=== PATIENT | female | born 1965 | race African-American/Black ===

== ENCOUNTER 2016-10-01 18:53 | Emergency (ER) | payer SELFPAY ==
[2016-10-01 19:12] VITALS: BP 137/60
[2016-10-01] MEDS ORDERED: FAMOTIDINE 20 MG TABLET PO ONE (21:21)
[2016-10-01] MEDS ORDERED: DIPHENHYDRAMINE HCL 50 MG CAPSULE PO ONE (21:21)
[2016-10-01] MEDS ORDERED: PREDNISONE 20 MG TABLET PO ONE (21:21)
--- NOTE | 2016-10-01 21:29 | ER Document Report ---
ED Skin Rash/Insect Bite/Abscs - General Chief Complaint: Rash Stated Complaint: RASH Time Seen by Provider: 10/01/16 20:46 Mode of Arrival: Ambulatory Information source: Patient TRAVEL OUTSIDE OF THE [place] IN LAST 30 DAYS: No - HPI Patient complains to provider of: Skin rash/lesion Onset: Last week Onset/Duration: Gradual, Persistent Quality of pain: No pain Exacerbated by: Denies Relieved by: Denies Similar symptoms previously: No Recently seen / treated by doctor: No Notes: Patient is a 51-year-old female presenting to the emergency room complaining of diffuse itchy rash that has been present and worsening over the past 10 days, she denies any new foods, medications, lotions, detergents or other skin irritants, no history of similar symptoms previously, no other family members with similar rash, no drainage, no pain, no fevers, she has not taken any medication at home for the rash, has tried home remedies such as vinegar or baking soda with no relief, also applied calamine lotion which reduces the itching but does not alleviate the rash itself - Related Data Allergies/Adverse Reactions: Penicillins Adverse Reaction (Verified 10/01/16 19:10) Urticaria Past Medical History - General Information source: Patient - Social History Smoking Status: Never Smoker Family History: Reviewed & Not Pertinent Patient has suicidal ideation: No Patient has homicidal ideation: No Renal/ Medical History: Denies: Hx Peritoneal Dialysis Musculoskeltal Medical History: Reports Hx Musculoskeletal Trauma Traumatic Medical History: Reports: Hx Fractures Past Surgical History: Reports: Hx Dilation and Curettage - Immunizations Immunizations up to date: Yes Hx Diphtheria, Pertussis, Tetanus Vaccination: Yes Review of Systems - Review of Systems Constitutional: No symptoms reported EENT: No symptoms reported Cardiovascular: No symptoms reported Respiratory: No symptoms reported Gastrointestinal: No symptoms reported Genitourinary: No symptoms reported Female Genitourinary: No symptoms reported Musculoskeletal: No symptoms reported Skin: See HPI, Rash Hematologic/Lymphatic: No symptoms reported Neurological/Psychological: No symptoms reported -: Yes All other systems reviewed and negative Physical Exam - Vital signs Vitals: Temp Pulse BP Pulse Ox 98.4 F 80 137/60 H 99 10/01/16 19:11 10/01/16 19:11 10/01/16 19:11 08/22/17 19:11 - Notes Notes: - General General appearance: Appears well, Alert In distress: None - HEENT Head: Normocephalic, Atraumatic Eyes: Normal Conjunctiva: Normal Extraocular movements intact: Yes Eyelashes: Normal Pupils: PERRL - Respiratory Respiratory status: No respiratory distress - Cardiovascular Rhythm: Regular - Abdominal Inspection: Normal - Back Back: Normal - Extremities General upper extremity: Normal inspection General lower extremity: Normal inspection - Neurological Neuro grossly intact: Yes Orientation: AAOx4 Raudel Coma Scale Eye Opening: Spontaneous [place] Coma Scale Verbal: Oriented [place] Coma Scale Motor: Obeys Commands [place] Coma Scale Total: 15 - Psychological Associated symptoms: Normal affect, Normal mood - Skin Skin Temperature: Warm Skin Moisture: Dry Skin Color: Normal - Skin Location of irregularity: Generalized Character of irregularity: Maculopapular Course - Re-evaluation Re-evalutation: 10/01/16 21:27 Patient with generalized maculopapular rash, no vesicles, no drainage, no erythema, it is scaly in some areas but patient did apply calamine lotion prior to coming to the emergency room, the rash is itchy, nonpainful, no fevers, patient will be treated for atopic dermatitis with appropriate medications and advised to follow-up with her primary care provider and an parts specialist in the next 2-3 days or return if symptoms worsen, patient acknowledges understanding and agreement with this plan - Vital Signs Vital signs: Temp Pulse Resp BP Pulse Ox 98.4 F 80 137/60 H 99 10/01/16 19:11 10/01/16 19:11 10/01/16 19:11 10/01/16 19:11 Discharge - Discharge Clinical Impression: Atopic dermatitis Qualifiers: Atopic dermatitis type: unspecified Qualified Code(s): L20.9 - Atopic dermatitis, unspecified Condition: Stable Disposition: HOME, SELF-CARE Instructions: Contact Dermatitis ([facility]), Atopic Dermatitis (Eczema) ([facility]), Leaf Coverer, Acute Allergic Reaction ([facility]) Additional Instructions: Follow up with your primary care provider in one to 2 days. Return to the emergency room immediately if symptoms worsen or any additional concerns. Prescriptions: Diphenhydramine HCl [Benadryl 25 Mg Capsule] 25 mg PO Q6 #30 capsule Famotidine [Pepcid 20 mg Tablet] 20 mg PO BID #12 tablet Methylprednisolone [Medrol Dosepack (4 mg/Tab) 21 Tab/Dosepak] 4 mg PO ASDIR PRN #21 tab.ds.pk PRN Reason: Referrals: DAYAMI BUENO MD [Primary Care Provider] - Follow up as needed
== END 2016-10-01 21:51 | disposition home or self-care (01) ==
LOC: ER 18:53
DX: L20.9 Atopic dermatitis, unspecified (principal)
CPT/HCPCS: 99282; J7512

== ENCOUNTER 2016-10-19 11:47 | Emergency (ER) | payer SELFPAY ==
[2016-10-19 11:53] VITALS: BP 138/82
--- NOTE | 2016-10-19 12:26 | ER Document Report ---
HPI - HPI Patient complains to provider of: rash Onset: Other - 2 wks Onset/Duration: Worse Quality of pain: No pain Pain Level: 0 Context: Patient complains of pruritic skin rash for the past 2 weeks. Patient states area started to her arms and has spread to trunk and lower extremities as well. Patient denies any fever or recent illness. Patient denies any recent dedication use except for recent steroids. Patient states she was here recently treated with steroids and the rash improved minimally and then got much worse. Associated Symptoms: Other - skin rash. denies: Fever Exacerbated by: Denies Relieved by: Denies Similar symptoms previously: No Recently seen / treated by doctor: Yes - ROS ROS below otherwise negative: Yes Systems Reviewed and Negative: Yes All other systems reviewed and negative - CONSTITUTIONAL Constitutional: DENIES: Fever, Chills - NEURO Neurology: DENIES: Headache - CARDIOVASCULAR Cardiovascular: DENIES: Chest pain - RESPIRATORY Respiratory: DENIES: Trouble Breathing - GASTROINTESTINAL Gastrointestinal: DENIES: Nausea, Patient vomiting - REPRODUCTIVE Reproductive: DENIES: : - DERM Skin Color: Normal Skin Problems: Rash Past Medical History - General Information source: Patient - Social History Smoking Status: Never Smoker Chew tobacco use (# tins/day): No Frequency of alcohol use: None Drug Abuse: None Occupation: cleaning Family History: Reviewed & Not Pertinent Renal/ Medical History: Denies: Hx Peritoneal Dialysis Musculoskeltal Medical History: Reports Hx Musculoskeletal Trauma Traumatic Medical History: Reports: Hx Fractures Past Surgical History: Reports: Hx Dilation and Curettage - Immunizations Immunizations up to date: Yes Hx Diphtheria, Pertussis, Tetanus Vaccination: Yes Vertical Provider Document - CONSTITUTIONAL Agree With Documented VS: Yes Exam Limitations: No Limitations General Appearance: WD/WN, No Apparent Distress - INFECTION CONTROL TRAVEL OUTSIDE OF THE [place] IN LAST 30 DAYS: No - HEENT HEENT: Atraumatic, Normal ENT Exam, Normocephalic - NECK Neck: Normal Inspection, Supple. negative: Lymphadenopathy-Left, Lymphadenopathy-Right - RESPIRATORY Respiratory: Breath Sounds Normal, No Respiratory Distress, Chest Non-Tender O2 Sat by Pulse Oximetry: 99 - CARDIOVASCULAR Cardiovascular: Regular Rate, Regular Rhythm, No Murmur - BACK Back: Normal Inspection - MUSCULOSKELETAL/EXTREMETIES Musculoskeletal/Extremeties: JOSÉ KAUFMAN - NEURO Level of Consciousness: Awake, Alert, Appropriate Motor/Sensory: No Motor Deficit - DERM Integumentary: Warm, Dry, Rash - Patient with diffuse scaling plaque type rash distributed to trunk and extremities Course - Re-evaluation Re-evalutation: 10/19/16 12:24 Suspect that patient has a case of pityriasis rosea, will treat symptomatically and draw labs to evaluate for possible syphilis. - Vital Signs Vital signs: Temp Pulse Resp BP Pulse Ox 98.0 F 82 20 138/82 H 99 10/19/16 11:52 10/19/16 11:52 10/19/16 11:52 10/19/16 11:52 10/19/16 11:52 Discharge - Discharge Clinical Impression: Pityriasis rosea Condition: Stable Disposition: HOME, SELF-CARE Instructions: Pityriasis Rosea ([facility]), Topical Steroid Cream or Ointment ([facility]) Additional Instructions: Return immediately for any new or worsening symptoms Followup with your primary care provider, call tomorrow to make a followup appointment Follow-up with elder assistant for further evaluation Prescriptions: Hydroxyzine HCl [Atarax 25 mg Tablet] 1 - 2 tab PO QID #25 tablet Triamcinolone Acetonide [Aristocort 0.1% Cream] 1 applic TP TID #60 gm Forms: Return to Work Referrals: PATRICIA CHAVARRIA DO [ACTIVE STAFF] - 10/21/16
== END 2016-10-19 12:38 | disposition home or self-care (01) ==
LOC: ER 11:47
DX: L42 Pityriasis rosea (principal)
CPT/HCPCS: 36415; 86592; 99283

== ENCOUNTER 2017-06-24 21:58 | Emergency (ER) | payer SELFPAY ==
--- NOTE | 2017-06-25 01:48 | ER Document Report ---
ED General - General Mode of Arrival: Ambulatory Information source: Patient TRAVEL OUTSIDE OF THE [place] IN LAST 30 DAYS: No <JENNIFER MCKNIGHT - Last Filed: 06/25/17 02:20> <EDUARDO BERNAL - Last Filed: 06/25/17 03:01> - General Chief Complaint: Chest Pain Stated Complaint: CHEST PAIN Time Seen by Provider: 06/25/17 01:25 Notes: Patient is a 51 year old female presenting to the emergency department complaining of left sided chest pain with associated symptoms of left shoulder pain, left sided neck pain, weakness and a headache. Patient states her chest pain began originally at 1600 and described it as sharp that eventually went away. She states around 20 prior to arrival to ER the chest pain came back, which she describes as sharp, intermittent and "shooting". She states the chest pain radiated into her left neck and shoulder. She describes her headache as sharp located on the temporal region bilaterally. Patent states that she has had similar symptoms like this approximately 2 years ago. (JENNIFER MCKNIGHT) - Related Data Allergies/Adverse Reactions: Penicillins Adverse Reaction (Verified 10/19/16 11:52) Urticaria Past Medical History - General Information source: Patient - Social History Smoking Status: Never Smoker Cigarette use (# per day): No Chew tobacco use (# tins/day): No Frequency of alcohol use: None Family History: CAD, Hypertension Patient has suicidal ideation: No Patient has homicidal ideation: No Musculoskeltal Medical History: Reports Hx Musculoskeletal Trauma Traumatic Medical History: Reports: Hx Fractures Past Surgical History: Reports: Hx Dilation and Curettage - Immunizations Immunizations up to date: Yes Hx Diphtheria, Pertussis, Tetanus Vaccination: Yes <JENNIFER MCKNIGHT - Last Filed: 06/25/17 02:20> Review of Systems - Review of Systems Constitutional: See HPI, Weakness EENT: No symptoms reported Cardiovascular: See HPI, Chest pain Respiratory: No symptoms reported Gastrointestinal: No symptoms reported Genitourinary: No symptoms reported Female Genitourinary: No symptoms reported Musculoskeletal: See HPI, Neck pain Skin: No symptoms reported Hematologic/Lymphatic: No symptoms reported Neurological/Psychological: See HPI, Headaches -: Yes All other systems reviewed and negative <JENNIFER MCKNIGHT - Last Filed: 06/25/17 02:20> Physical Exam - General General appearance: Appears well, Alert, Other In distress: None - HEENT Head: Normocephalic, Atraumatic, Other - Parietal scalp tender to palpation Eyes: Normal Conjunctiva: Normal Extraocular movements intact: Yes Pupils: PERRL Neck: Normal, Posterior cervical chain - tender to palpation - Respiratory Respiratory status: No respiratory distress Chest status: Tender - Left anterior chest wall tender to palpation Breath sounds: Normal Chest palpation: Normal - Cardiovascular Rhythm: Regular Heart sounds: Normal auscultation Murmur: No Friction rub: No Gallop: None auscultated - Abdominal Inspection: Morbidly Obese - Back Back: Normal - Extremities General upper extremity: Normal ROM General lower extremity: Normal ROM Shoulder: Tender - right shoulder tender to palpation - Neurological Neuro grossly intact: Yes Cognition: Normal Orientation: AAOx4 [place] Coma Scale Eye Opening: Spontaneous [place]audel Coma Scale Verbal: Oriented [place] Coma Scale Motor: Obeys Commands [place] Coma Scale Total: 15 Speech: Normal - Psychological Associated symptoms: Normal affect, Normal mood - Skin Skin Temperature: Warm Skin Moisture: Dry <JENNIFER MCKNIGHT - Last Filed: 06/25/17 02:20> - Vital signs Vitals: Temp Pulse Resp BP Pulse Ox 98.5 F 73 18 156/102 H 98 06/24/17 22:18 06/24/17 22:18 06/24/17 22:18 06/24/17 22:18 06/24/17 22:18 Course - Laboratory Result Diagrams: 06/25/17 00:57 06/25/17 00:57 <JENNIFER MCKNIGHT - Last Filed: 06/25/17 02:20> - Laboratory Result Diagrams: 06/25/17 00:57 06/25/17 00:57 <EDUARDO BERNAL - Last Filed: 06/25/17 03:01> - Re-evaluation Re-evalutation: 06/25/17 02:55 Review of prior visits over the last few years shows the patient's blood pressure has been as high or higher than it is today as far back as 2010. It would frequently go down during her visits suggesting this may be white coat hypertension. The patient's CK is 512, this may be related to the chest wall muscle tenderness and shoulder muscle tenderness. (EDUARDO BERNAL) - Vital Signs Vital signs: Temp Pulse Resp BP Pulse Ox 97.6 F 73 15 151/87 H 98 06/25/17 00:13 06/24/17 22:18 06/25/17 01:01 06/25/17 01:01 06/25/17 01:01 - Laboratory Laboratory results interpreted by me: 06/25/17 00:57 Est GFR (Non-Af Amer) 59 L AST 57 H Creatine Kinase 512 H Discharge <JENNIFER MCKNIGHT - Last Filed: 06/25/17 02:20> <EDUARDO BERNAL - Last Filed: 06/25/17 03:01> - Discharge Clinical Impression: Chest wall pain, Elevated blood pressure reading, Muscle tension headache, Elevated creatine kinase Condition: Stable Disposition: HOME, SELF-CARE Additional Instructions: Chest Wall Pain: Your chest pain has been diagnosed as coming from the chest wall. This is often caused by straining the muscles or joints in the chest during physical activity, direct trauma, coughing, or vigorous vomiting. Persons with arthritis are especially prone to this type of pain, due to inflammation of the cartilage joints near the breast bone. Occasionally, no cause can be found. Rest from strenuous physical activity. This kind of chest pain is usually made worse by movement of the chest. Depending on the symptoms, we may prescribe medicine for pain, muscle relaxation, and antiinflammatory effects. If the pain is new, and seems to be due to muscle strain, cold packs can help. Otherwise, apply gentle warmth to the painful area for 15 minutes every hour or two. You should contact the doctor immediately if things change. Further evaluation is needed if you develop a fever or cough, if the nature of the pain changes, or if you become short of breath. Elevated Creatinine Kinase enzyme: This muscle enzyme was elevated. This frequently occurs during injury to the muscle. This may be related to the tenderness you have in your chest wall muscles. For now the only important thing to do is drink lots of fluids to help flush the muscle enzymes out of your bloodstream. High Blood Pressure: When your blood pressure was taken today it was elevated. Pre-hypertension/Hypertension: The patient has been informed that they may have pre-hypertension or Hypertension based on a blood pressure reading in the emergency department. I recommend that the patient call the primary care provider listed on their discharge instructions or a physician of their choice this wee to arrange follow up for further evaluation of possible pre- hypertension or Hypertension. Sometimes, stress or illness causes a temporary elevation of your blood pressure. We suggest that you get your blood pressure measured three more times during the next few days to see if this is more than a temporary abnormality. If your blood pressure is greater than 150/90 on each occasion, you must have treatment. Some simple things you can do to help are: If you have blood pressure medicine but aren't using it regularly, start taking it again. Get some aerobic exercise for at least 20 minutes on a daily basis. (See your doctor before beginning a new exercise program.) Eat a low-fat diet. Lose excess weight. Avoid salty foods and avoid adding salt to any of the foods you eat. Avoid diet pills, decongestants, "energizing" herbs, and other medicines that elevate blood pressure. If left untreated, hypertension greatly enhances your risk for developing heart disease and strokes. Please don't ignore this problem. Take Tylenol and ibuprofen for your chest wall pain and muscle tension headache. Drink lots of fluids for the next few days to help wash out the elevated muscle enzymes noted in your bloodstream today. Get plenty of rest. Check your blood pressure every day for the next week and if it remains elevated then you should see a local medical doctor to treat your blood pressure. Follow-up with a local medical doctor in 1 week to recheck your creatinine kinase muscle enzyme level.. RETURN TO THE EMERGENCY ROOM IF ANY NEW OR WORSENING SYMPTOMS. Scribe Documentation - Scribe Written by Teresa:: Teresa Obregon, 06/25/2017 01:57 acting as scribe for :: Sy <JENNIFER MCKNIGHT - Last Filed: 06/25/17 02:20>
[2017-06-25 02:02] LABS: ABSOLUTE EOSINOPHILS # (AUTO) 0.1 10^3/uL (0.0-0.6); ABSOLUTE LYMPHOCYTES (AUTO) 2.7 10^3/uL (0.5-4.7); ABSOLUTE MONOCYTES (AUTO) 0.6 10^3/uL (0.1-1.4); ABSOLUTE NEUT (AUTO) 2.6 10^3/uL (1.7-8.2); BASOPHILS % (AUTO) 0.5 % (0-2); EOSINOPHILS % (AUTO) 1.9 % (0-6); HEMATOCRIT 45.2 % (36.0-47.0); HEMOGLOBIN 14.9 g/dL (12.0-15.5); LYMPHOCYTES % (AUTO) 44.8 % (13-45); MEAN CORPUSCULAR HEMOGLOBIN 29.9 pg (27.0-33.4); MEAN CORPUSCULAR HGB CONC 32.9 g/dL (32.0-36.0); MEAN CORPUSCULAR VOLUME 91 fl (80-97); MONOCYTES % (AUTO) 9.6 % (3-13); PLATELET COUNT 233 10^3/uL (150-450); RED BLOOD COUNT 4.97 10^6/uL (3.72-5.28); RED CELL DISTRIBUTION WIDTH 13.5 % (11.5-14.0); SEGMENTED NEUTROPHILS % (AUTO) 43.2 % (42-78); TOTAL CELLS COUNTED % (AUTO) 100 %
[2017-06-25] MEDS ORDERED: KETOROLAC TROMETHAMINE INJ/PF 30 MG/1 ML SDV IV ONE (02:05)
[2017-06-25 02:09] LABS: ALANINE AMINOTRANSFERASE 32 U/L (9-52); ALKALINE PHOSPHATASE 103 U/L (38-126); ANION GAP 12 (5-19); ASPARTATE AMINO TRANSFERASE 57 U/L (14-36); BILIRUBIN,DIRECT 0.4 mg/dL (0.0-0.4); BILIRUBIN,TOTAL 0.5 mg/dL (0.2-1.3); BLOOD UREA NITROGEN 13 mg/dL (7-20); CALCIUM 9.9 mg/dL (8.4-10.2); CARBON DIOXIDE 29 mmol/L (22-30); CHLORIDE 103 mmol/L (98-107); CREATINE KINASE 512 U/L (30-135); GLUCOSE 107 mg/dL (75-110); POTASSIUM 4.7 mmol/L (3.6-5.0); SODIUM 144.4 mmol/L (137-145); TOTAL PROTEIN 7.1 g/dL (6.3-8.2)
[2017-06-25 03:06] VITALS: BP 123/88
--- NOTE | 2017-06-25 08:47 | EKG REPORT ---
SEVERITY:- ABNORMAL ECG - SINUS RHYTHM FIRST DEGREE AV BLOCK CONSIDER LEFT VENTRICULAR HYPERTROPHY PROBABLE INFERIOR INFARCT, OLD : Confirmed by: Tiago Huang 25-Jun-2017 08:46:26
== END 2017-06-25 03:16 | disposition home or self-care (01) ==
LOC: ER 21:58
DX: R07.9 Chest pain, unspecified (principal); M25.512 Pain in left shoulder; M54.2 Cervicalgia; R94.4 Abnormal results of kidney function studies; R53.1 Weakness; Z88.0 Allergy status to penicillin; G44.209 Tension-type headache, unspecified, not intractable; R03.0 Elevated blood-pressure reading, without diagnosis of hypertension
CPT/HCPCS: 93005; 99285; 96374; 36415; 82550; 85025; 80053; 84484; 93010; J1885

== ENCOUNTER 2017-10-09 14:01 | Emergency (ER) | payer SELFPAY ==
[2017-10-09] MEDS ORDERED: ACETAMINOPHEN 325 MG TABLET PO ONE (14:26)
[2017-10-09] MEDS ORDERED: IBUPROFEN 600 MG TABLET PO ONE (14:26)
--- NOTE | 2017-10-09 14:39 | ER Document Report ---
HPI - HPI Patient complains to provider of: Neck and lower back pain Onset: Other - Chronic but worse since yesterday Onset/Duration: Gradual, Persistent Pain Level: 4 Context: 52-year-old nondiabetic [employer] patient of [facility] is complaining of crunching and catching sensation when she turns her neck side to side and moves her lower back. She is worried that she has arthritis. There is no recent injury at work. She did get a new mattress on Friday. No fever or chills. No radiculopathy. No saddle anesthesia. No IV drug use. No history of cancer. Associated Symptoms: None Exacerbated by: Movement Relieved by: Denies Similar symptoms previously: Yes Recently seen / treated by doctor: Yes - ROS ROS below otherwise negative: Yes Systems Reviewed and Negative: Yes All other systems reviewed and negative - REPRODUCTIVE Reproductive: DENIES: : Past Medical History - General Information source: Patient - Social History Smoking Status: Never Smoker Occupation: [employer] off today Lives with: Family Family History: CAD, Hypertension Patient has suicidal ideation: No Patient has homicidal ideation: No Renal/ Medical History: Denies: Hx Peritoneal Dialysis Musculoskeletal Medical History: Reports Hx Musculoskeletal Trauma Traumatic Medical History: Reports: Hx Fractures Past Surgical History: Reports: Hx Dilation and Curettage - Immunizations Immunizations up to date: Yes Hx Diphtheria, Pertussis, Tetanus Vaccination: Yes Vertical Provider Document - CONSTITUTIONAL Agree With Documented VS: Yes Exam Limitations: No Limitations - INFECTION CONTROL TRAVEL OUTSIDE OF THE [place] IN LAST 30 DAYS: No - HEENT HEENT: Normocephalic - NECK Neck: Supple - non tender c spine, no deformity, erythema or rash - MUSCULOSKELETAL/EXTREMETIES Musculoskeletal/Extremeties: MAEW, FROM. negative: Tender - no renetta l spine tenderness Notes: 5+ arm strength - NEURO Level of Consciousness: Awake Motor/Sensory: No Motor Deficit, No Sensory Deficit Deep Tendon Reflexes: 2+ - DERM Integumentary: No Rash Course - Re-evaluation Re-evalutation: 10/09/17 15:28 Radiology report shows lower lumbar facet arthropathy similar compared to previous exam, diffuse degenerative disc changes with disc space loss and anterior osteophyte C2-3 through C6-7, there is some foraminal narrowing C3 through 5 and high-grade right C5-6 foraminal narrowing, left side there is high -grade C3 through 6 foraminal narrowing. I explained this to the patient and she can follow-up with [facility] for possible referral to neurosurgery for evaluation. - Vital Signs Vital signs: Temp Pulse Resp BP Pulse Ox 98.4 F 87 16 143/85 H 97 10/09/17 14:06 10/09/17 14:06 10/09/17 14:06 10/09/17 14:06 10/09/17 14:06 Discharge - Discharge Clinical Impression: degenerative disc disease neck, arthritis lumbar spine Condition: Good Disposition: HOME, SELF-CARE Instructions: Ibuprofen (General) ([facility]), Arthritis ([facility]) Additional Instructions: See your doctor for follow-up Copy of imaging reports given to you Motrin for inflammation and discomfort Prescriptions: Ibuprofen [Motrin 600 mg Tablet] 600 mg PO Q8HP PRN #30 tablet PRN Reason: Forms: Return to Work Referrals: DAYAMI HUSTON MD [ACTIVE STAFF] - Follow up in 1 week
--- NOTE | 2017-10-09 15:22 | RADIOLOGY REPORT (SQ) ---
EXAM DESCRIPTION: CERV SP 4 OR 5 VIEWS COMPLETED DATE/TIME: 10/09/2017 2:55 pm REASON FOR STUDY: pain with movement, crunching sound, no injury COMPARISON: Cervical spine films 10/23/2011 NUMBER OF VIEWS: Five views. TECHNIQUE: AP, lateral, obliques and odontoid radiographic images acquired of the cervical spine. LIMITATIONS: None. FINDINGS: MINERALIZATION: Normal. ALIGNMENT: Anatomic. VERTEBRAE: Vertebral bodies of normal height. DISCS: Disc space narrowing with anterior osteophyte formation from C2-3 through C6-7. FORAMINA: On the right side, moderate C3-4 and C4-5 foraminal narrowing and high-grade right C5-6 for aminal narrowing is present. On the left side, high-grade C3-4, C4-5, and C5-6 foraminal narrowing is present. LATERAL AND POSTERIOR ELEMENTS: Facets, lateral masses and spinous processes without significant find ings. HARDWARE: None in the spine. SOFT TISSUES: No masses or calcifications. Lung apices clear. OTHER: No other significant finding. IMPRESSION: Diffuse degenerative disc changes with disc space loss of height and anterior osteophyte formation. Multilevel foraminal narrowing from facet and uncovertebral hypertrophy TECHNICAL DOCUMENTATION: JOB ID: [id number] [employer]- All Rights Reserved Reading location - IP/workstation name: [email or web address]
--- NOTE | 2017-10-09 15:24 | RADIOLOGY REPORT (SQ) ---
EXAM DESCRIPTION: L SPINE WHOLE COMPLETED DATE/TIME: 10/09/2017 2:55 pm REASON FOR STUDY: pain with movement, crunching sound, no injury COMPARISON: Lumbar spine five views 10/23/2011 NUMBER OF VIEWS: Five views including obliques. TECHNIQUE: AP, lateral, oblique, and sacral radiographic images acquired of the lumbar spine. LIMITATIONS: None. FINDINGS: MINERALIZATION: Normal. SEGMENTATION: Normal. No transitional anatomy. ALIGNMENT: Normal. VERTEBRAE: Maintained height. No fracture or worrisome bone lesion. DISCS: Disc space loss of height at L5-S1 POSTERIOR ELEMENTS: Bilateral facet arthropathy at L3-4, L4-5, L5-S1. No spondylolysis HARDWARE: None in the spine. PARASPINAL SOFT TISSUES: Normal. PELVIS: Bilateral SI joint sclerosis OTHER: No other significant finding. IMPRESSION: Lower lumbar facet arthropathy similar compared to previous exam TECHNICAL DOCUMENTATION: JOB ID: [id number] [employer]- All Rights Reserved Reading location - IP/workstation name: [email or web address]
[2017-10-09 15:47] VITALS: BP 140/81
== END 2017-10-09 15:46 | disposition home or self-care (01) ==
LOC: ER 14:01
DX: M50.30 Other cervical disc degeneration, unspecified cervical region (principal); M47.9 Spondylosis, unspecified
CPT/HCPCS: 72050; 72110; 99283

== ENCOUNTER 2019-08-17 21:44 | Emergency (ER) | payer SELFPAY ==
[2019-08-17 23:17] LABS: APPEARANCE,URINE CLOUDY; BILIRUBIN,URINE NEGATIVE (NEGATIVE); COLOR,URINE YELLOW; GLUCOSE, URINE >=500 mg/dL (NEGATIVE); KETONES,URINE NEGATIVE (NEGATIVE); LEUKOCYTE ESTERASE,URINE LARGE (NEGATIVE); NITRITE,URINE NEGATIVE (NEGATIVE); PROTEIN,URINE 30 mg/dL (NEGATIVE); URINE SPECIFIC GRAVITY 1.027
--- NOTE | 2019-08-18 00:02 | ER Document Report ---
ED Medical Screen (RME) - General Stated Complaint: SORE THROAT Time Seen by Provider: 08/17/19 23:54 Primary Care Provider: DAYAMI BUENO MD [Primary Care Provider] - Follow up as needed Mode of Arrival: Ambulatory Information source: Patient Notes: HPI; 53-year-old female presents emergency room complaining of a sore throat for the past 2 days. Denies any fevers. States is able to drink but is painful. Patient states she had exposure to a positive family member who tested positive on Friday for COVID her last exposure to the patient was Friday night denies any nausea, vomiting, no diarrhea's, no fever, no recent travel. PE: Alert and oriented x3. Mild distress noted. Unable to do full assessment in the waiting area. I have greeted and performed a rapid initial assessment of this patient. A comprehensive ED assessment and evaluation of the patient, analysis of test results and completion of the medical decision making process will be conducted by additional ED providers. I have specifically instructed the patient or family members with the patient to immediately return to any nursing staff should anything change in the patient's condition or with their chief complaint. TRAVEL OUTSIDE OF THE [place] IN LAST 30 DAYS: No - Related Data Allergies/Adverse Reactions: Penicillins Adverse Reaction (Verified 10/09/17 14:04) Urticaria Past Medical History - Social History Family history: CAD, CVA, Hyperlipidemia, Hypertension Renal/ Medical History: Denies: Hx Peritoneal Dialysis Musculoskeltal Medical History: Reports Hx Musculoskeletal Trauma Traumatic Medical History: Reports: Hx Fractures Past Surgical History: Reports: Hx Dilation and Curettage - Immunizations Immunizations up to date: Yes Hx Diphtheria, Pertussis, Tetanus Vaccination: Yes Physical Exam - Vital signs Vitals: Temp Pulse Resp BP Pulse Ox 98.3 F 82 18 149/80 H 96 08/17/19 22:02 08/17/19 22:02 08/17/19 22:02 08/17/19 22:02 08/17/19 22:02 Course - Vital Signs Vital signs: Temp Pulse Resp BP Pulse Ox 98.3 F 82 18 149/80 H 96 08/17/19 22:02 08/17/19 22:02 08/17/19 22:02 08/17/19 22:02 08/17/19 22:02 - Laboratory Laboratory results interpreted by me: 08/17/19 22:54 Urine Protein 30 H Urine Glucose (UA) >=500 H Urine Urobilinogen 4.0 H Ur Leukocyte Esterase LARGE H Urine Ascorbic Acid 20 H Doctor's Discharge - Discharge Referrals: DAYAMI BUENO MD [Primary Care Provider] - Follow up as needed
[2019-08-18] MEDS ORDERED: CEPHALEXIN 500 MG CAPSULE PO ONE (01:35)
[2019-08-18] MEDS ORDERED: FLUCONAZOLE 100 MG TABLET PO ONE (01:35)
--- NOTE | 2019-08-18 01:39 | ER Document Report ---
ED General - General Chief Complaint: Sore Throat Stated Complaint: SORE THROAT Time Seen by Provider: 08/17/19 23:54 Primary Care Provider: DAYAMI BUENO MD [ACTIVE STAFF] - Follow up as needed Mode of Arrival: Ambulatory Notes: Patient is a 53-year-old female that comes to the emergency department for chief complaint of exposure to a family member who has now tested positive for COVID- 19. Patient states yesterday she also developed a sore throat. Patient also states that she currently has a yeast infection (vaginally) and she also has dysuria. She denies abdominal pain, flank pain, vomiting, cough, shortness of breath, difficulty swallowing or breathing, chest pain, headache, neck stiffness. Past medical history of hypertension, hyperlipidemia, type 2 diabetes. She is taking her medications. She denies smoking, asthma, COPD, or any immunosuppression. TRAVEL OUTSIDE OF THE [place] IN LAST 30 DAYS: No - Related Data Allergies/Adverse Reactions: Penicillins Adverse Reaction (Verified 10/09/17 14:04) Urticaria Past Medical History - General Information source: Patient - Social History Smoking Status: Former Smoker Chew tobacco use (# tins/day): No Frequency of alcohol use: Rare Drug Abuse: None Lives with: Family Family History: CAD, Hypertension Renal/ Medical History: Denies: Hx Peritoneal Dialysis Musculoskeletal Medical History: Reports Hx Musculoskeletal Trauma Traumatic Medical History: Reports: Hx Fractures Past Surgical History: Reports: Hx Dilation and Curettage - Immunizations Immunizations up to date: Yes Hx Diphtheria, Pertussis, Tetanus Vaccination: Yes Review of Systems - Review of Systems Constitutional: No symptoms reported EENT: See HPI Cardiovascular: No symptoms reported Respiratory: No symptoms reported Gastrointestinal: No symptoms reported Genitourinary: See HPI Female Genitourinary: No symptoms reported Musculoskeletal: No symptoms reported Skin: No symptoms reported Hematologic/Lymphatic: No symptoms reported Neurological/Psychological: No symptoms reported Physical Exam - Vital signs Vitals: Temp Pulse Resp BP Pulse Ox 98.3 F 82 18 149/80 H 96 08/17/19 22:02 08/17/19 22:02 08/17/19 22:02 08/17/19 22:02 08/17/19 22:02 - Notes Notes: GENERAL: Alert, interacts well. No acute distress. HEAD: Normocephalic, atraumatic. EYES: Pupils equal, round, and reactive to light. Extraocular movements intact. ENT: Oral mucosa moist, tongue midline. Oropharynx unremarkable. Airway patent. Nares patent, sinuses non-tender, ear canals unremarkable, TM's intact. NECK: Full range of motion. Supple. Trachea midline. No lymphadenopathy. LUNGS: Clear to auscultation bilaterally, no wheezes, rales, or rhonchi. No respiratory distress. Non-tender chest wall. HEART: Regular rate and rhythm. No murmur ABDOMEN: Soft, non-tender. Non-distended. EXTREMITIES: Moves all 4 extremities spontaneously. No edema, normal radial and dorsalis pedis pulses bilaterally. No cyanosis. BACK: no cervical, thoracic, lumbar midline tenderness. No saddle anesthesia, normal distal neurovascular exam. Moves all extremities in full range of motion. NEUROLOGICAL: Alert and oriented x3. Normal speech. Cranial nerves II through XII grossly intact. Strength 5/5 in all extremities. PSYCH: Normal affect, normal mood. SKIN: Warm, dry, normal turgor. No rashes or lesions noted. Course - Re-evaluation Re-evalutation: Patient has unremarkable oral pharyngeal exam, no lymphadenopathy, clear lungs, unremarkable ENT exam, unremarkable abdomen exam. She does have dysuria, urine does show urinary tract infection. No fever or vomiting. Culture placed, placed on antibiotics, also placed on Diflucan after discussion because of patient's reported yeast infection. I do not feel a chest x-ray is indicated because patient has no respiratory symptoms, hypoxia, or even fever. However because patient has been exposed to the coronavirus patient will be tested for COVID-19, she was given quarantine instructions, she was given return precautions which were discussed in detail. Patient states understanding and agreement with plan. Stable and well-appearing at time of discharge. - Vital Signs Vital signs: Temp Pulse Resp BP Pulse Ox 97.6 F 74 16 146/89 H 96 08/18/19 02:52 08/18/19 02:52 08/18/19 02:52 08/18/19 02:52 08/18/19 02:52 - Laboratory Laboratory results interpreted by me: 08/17/19 22:54 Urine Protein 30 H Urine Glucose (UA) >=500 H Urine Urobilinogen 4.0 H Ur Leukocyte Esterase LARGE H Urine Ascorbic Acid 20 H Discharge - Discharge Clinical Impression: Exposure to COVID-19 virus, Dysuria Pharyngitis Qualifiers: Pharyngitis/tonsillitis etiology: unspecified etiology Qualified Code(s): J02.9 - Acute pharyngitis, unspecified Condition: Stable Disposition: HOME, SELF-CARE Additional Instructions: Your strep test is negative. You have been tested for the virus COVID-19. You will be contacted with results, see additional instructions for this below. You do have a urinary tract infection, take the Keflex as prescribed to completion, after completion take the Diflucan medication again for the yeast infection. Return if you worsen including vomiting, developing abdominal or flank pain, spiking fevers, difficulty breathing, or any other concerning symptoms. As a person under investigation for COVID-19, the [place] Department of Health and Human Services (division on public health) advises you to adhere to the following guidance until your test results are reported to you. If your test result is positive, you will receive additional information from your provider and your local health department at that time. Remain at home until you are cleared by the health provider or public health authorities. Keep a log of visitors to your home, notify any visitors to your home of your isolation status. If you plan to move to a new address or leave the [facility], notify the local health department in your County. Call your Doctor or seek care if you have an urgent medical need. Before seeking medical care, call him to get instructions from the provider before arriving at the medical office, clinic, or hospital. Notify them that you are being tested for the virus (COVID-19) so that arrangements can be made, as necessary, to prevent transmission to others in the healthcare setting. Next, notify the local health department in your county. If a medical emergency arises and you need to call 911, inform the first responders that you are being tested for the virus that causes COVID-19. Next, notify the local health department in your county. Prescriptions: Fluconazole [Diflucan] 150 mg PO ONCE PRN #3 tablet PRN Reason: Cephalexin Monohydrate [Keflex 500 mg Capsule] 500 mg PO BID 10 Days #20 capsule Forms: Return to Work Referrals: DAYAMI BUENO MD [ACTIVE STAFF] - Follow up as needed
[2019-08-18 03:04] VITALS: BP 146/89
== END 2019-08-18 03:10 | disposition home or self-care (01) ==
LOC: ER 21:44
DX: Z20.828 Contact with and (suspected) exposure to other viral communicable diseases (principal); J02.9 Acute pharyngitis, unspecified; R30.0 Dysuria; I10 Essential (primary) hypertension; E78.5 Hyperlipidemia, unspecified; E11.9 Type 2 diabetes mellitus without complications; Z79.899 Other long term (current) drug therapy; Z87.891 Personal history of nicotine dependence; Z88.0 Allergy status to penicillin
CPT/HCPCS: 99283; 87070; 87880; 87635; 81001; C9803; 87086

== ENCOUNTER 2019-09-26 20:09 | Emergency (ER) | payer SELFPAY ==
[2019-09-26] MEDS ORDERED: NORMAL SALINE 1000 ML 1,000 ML IV ONE (20:48)
--- NOTE | 2019-09-26 20:51 | ER Document Report ---
ED Medical Screen (RME) - General Chief Complaint: High Blood Sugar Stated Complaint: BLOOD SUGAR ISSUES Time Seen by Provider: 09/26/19 20:47 Primary Care Provider: DEJAN ALFONSO DO [Primary Care Provider] - Follow up as needed Mode of Arrival: Ambulatory Information source: Patient Notes: 54-year-old female presented to ED for complaint of nausea vomiting elevated blood sugar frequent thirst and frequent urination. She states she was diagnosed with diabetes type 2 earlier this year. She states she also has a history of high blood pressure and is out of her metformin and her blood pressure medication. She states she is not taking either and a couple days. Does have a blood sugar of 582 at this time. We will will get blood urine EKG and start IV fluids in the triage area and we will get her to a room. I have asked the triage nurse to place informed the charge nurse we needed a room as soon as possible. I have greeted and performed a rapid initial assessment of this patient. A comprehensive ED assessment and evaluation of the patient, analysis of test results and completion of medical decision making process will be conducted by an additional ED providers. TRAVEL OUTSIDE OF THE [place] IN LAST 30 DAYS: No - Related Data Allergies/Adverse Reactions: Penicillins Adverse Reaction (Verified 10/09/17 14:04) Urticaria Past Medical History - Social History Family history: CAD, CVA, Hyperlipidemia, Hypertension Renal/ Medical History: Denies: Hx Peritoneal Dialysis Musculoskeltal Medical History: Reports Hx Musculoskeletal Trauma Traumatic Medical History: Reports: Hx Fractures Past Surgical History: Reports: Hx Dilation and Curettage - Immunizations Immunizations up to date: Yes Hx Diphtheria, Pertussis, Tetanus Vaccination: Yes Doctor's Discharge - Discharge Referrals: DEJAN ALFONSO DO [Primary Care Provider] - Follow up as needed
[2019-09-26 21:30] LABS: VENOUS BLOOD BASE EXCESS 2.6 mmol/L; VENOUS BLOOD HCO3 29.3 mmol/L (20-32); VENOUS BLOOD PCO2 53.1 mmHg (35-63); VENOUS BLOOD PH 7.36 (7.30-7.42)
[2019-09-26 21:31] LABS: ABSOLUTE EOSINOPHILS # (AUTO) 0.1 10^3/uL (0.0-0.6); ABSOLUTE LYMPHOCYTES (AUTO) 2.6 10^3/uL (0.5-4.7); ABSOLUTE MONOCYTES (AUTO) 0.5 10^3/uL (0.1-1.4); ABSOLUTE NEUT (AUTO) 2.6 10^3/uL (1.7-8.2); BASOPHILS % (AUTO) 0.5 % (0-2); EOSINOPHILS % (AUTO) 1.2 % (0-6); HEMATOCRIT 46.8 % (36.0-47.0); LYMPHOCYTES % (AUTO) 44.6 % (13-45); MEAN CORPUSCULAR HEMOGLOBIN 30.9 pg (27.0-33.4); MEAN CORPUSCULAR HGB CONC 34.3 g/dL (32.0-36.0); MEAN CORPUSCULAR VOLUME 90 fl (80-97); MONOCYTES % (AUTO) 9.3 % (3-13); PLATELET COUNT 213 10^3/uL (150-450); RED CELL DISTRIBUTION WIDTH 12.5 % (11.5-14.0); SEGMENTED NEUTROPHILS % (AUTO) 44.4 % (42-78); TOTAL CELLS COUNTED % (AUTO) 100 %; WHITE BLOOD COUNT 5.9 10^3/uL (4.0-10.5)
[2019-09-26 21:49] LABS: ALBUMIN 4.7 g/dL (3.5-5.0); ALKALINE PHOSPHATASE 199 U/L (38-126); ANION GAP 11 (5-19); ASPARTATE AMINO TRANSFERASE 46 U/L (14-36); BILIRUBIN,DIRECT 0.1 mg/dL (0.0-0.4); BILIRUBIN,TOTAL 0.6 mg/dL (0.2-1.3); BLOOD UREA NITROGEN 12 mg/dL (7-20); CALCIUM 9.8 mg/dL (8.4-10.2); CARBON DIOXIDE 30 mmol/L (22-30); CHLORIDE 94 mmol/L (98-107); POTASSIUM 4.3 mmol/L (3.6-5.0); TOTAL PROTEIN 8.3 g/dL (6.3-8.2)
[2019-09-26 21:56] LABS: GLUCOSE 477 mg/dL (75-110)
[2019-09-26] MEDS ORDERED: METFORMIN HCL 500 MG TABLET PO ONE (22:17)
[2019-09-26] MEDS ORDERED: AMLODIPINE BESYLATE 2.5 MG TABLET PO ONE (22:17)
--- NOTE | 2019-09-26 22:17 | ER Document Report ---
ED Blood Sugar Problem - General Chief Complaint: High Blood Sugar Stated Complaint: BLOOD SUGAR ISSUES Time Seen by Provider: 09/26/19 20:47 Primary Care Provider: DEJAN ALFONSO DO [NO LOCAL MD] - Follow up as needed Mode of Arrival: Ambulatory Notes: CHIEF COMPLAINT: Increased thirst, increased urination over the last 3 to 4 days HPI: 54-year-old female presenting for increased thirst and urination over the last 3 to 4 days has been out of her metformin and her blood pressure medicati ons over the last 3 to 4 days. Did not call her PCP for refills prior to coming to the emergency department today. Does not have fever cough chest pain shortness of breath. States she did have some nausea vomiting. ROS: See HPI - all other systems were reviewed and are otherwise negative Constitutional: no fever Eyes: no drainage, no blurred vision ENT: no runny nose, no sore throat Cardiovascular: no chest pain Resp: no SOB, no cough GI: + vomiting, no diarrhea, no abdominal pain : no dysuria, positive frequency Integumentary: no rash Allergy: no hives Musculoskeletal: no extremity pain or swelling Neurological: no numbness/tingling, no weakness MEDICATIONS: I agree with the patient medications as charted by the RN. ALLERGIES: I agree with the allergies as charted by the RN. PAST MEDICAL HISTORY/PAST SURGICAL HISTORY: Reviewed and agree as charted by RN. SOCIAL HISTORY: Reviewed and agree as charted by RN. FAMILY HISTORY: No significant familial comorbid conditions directly related to patient complaint EXAM: Reviewed vital signs as charted by RN. CONSTITUTIONAL: Alert and oriented and responds appropriately to questions. Well-appearing; well-nourished HEAD: Normocephalic; atraumatic EYES: PERRL; Conjunctivae clear, sclerae non-icteric ENT: normal nose; no rhinorrhea; moist mucous membranes; pharynx without lesions noted, no uvula edema or deviation, no tonsillar hypertrophy, phonation normal NECK: Supple without meningismus; non-tender; no cervical lymphadenopathy, no masses CARD: RRR; no murmurs, no clicks, no rubs, no gallops; symmetric distal pulses RESP: Normal chest excursion without splinting or tachypnea; breath sounds clear and equal bilaterally; no wheezes, no rhonchi, no rales, pulse oximetry 98% on room air not hypoxic ABD/GI: Normal bowel sounds; non-distended; soft, non-tender, no rebound, no guarding; no palpable organomegaly or masses. BACK: The back appears normal and is non-tender to palpation, there is no CVA tenderness EXT: Normal ROM in all joints; non-tender to palpation; no cyanosis, no effusions, no edema SKIN: Normal color for age and race; warm; dry; good turgor; no acute lesions noted NEURO: Moves all extremities equally; Motor and sensory function intact PSYCH: The patient's mood and manner are appropriate. Grooming and personal hygiene are appropriate. MDM: 54-year-old diabetic female presenting for increased thirst and urination over the last 3 to 4 days. Out of her medications for same timeframe. States she takes metformin 500 mg daily and amlodipine 2.5 mg daily. Does have a primary care provider for follow-up. Patient has no abdominal pain on exam. Patient initial lab work done through triage process. Patient appears to be hyperglycemic but does not appear to be in DKA. Will give patient a dose of her medications. She is finishing an IV fluid bolus. Her Accu-Chek has been decreasing. If urinalysis shows evidence of infection will place on antibiotics. Patient will otherwise be given prescription for her medications and will follow up with her PCP TRAVEL OUTSIDE OF THE [place] IN LAST 30 DAYS: No - Related Data Allergies/Adverse Reactions: Penicillins Adverse Reaction (Verified 10/09/17 14:04) Urticaria Past Medical History - General Information source: Patient - Social History Smoking Status: Never Smoker Chew tobacco use (# tins/day): No Frequency of alcohol use: None Drug Abuse: None Family History: CAD, Hypertension Patient has homicidal ideation: No Endocrine Medical History: Reports: Hx Diabetes Mellitus Type 2 Renal/ Medical History: Denies: Hx Peritoneal Dialysis Musculoskeletal Medical History: Reports Hx Musculoskeletal Trauma Traumatic Medical History: Reports: Hx Fractures Past Surgical History: Reports: Hx Dilation and Curettage - Immunizations Immunizations up to date: Yes Hx Diphtheria, Pertussis, Tetanus Vaccination: Yes Physical Exam - Vital signs Vitals: Temp 98.2 F 09/26/19 20:48 Course - Re-evaluation Re-evalutation: 09/26/19 22:35 Urine does not show evidence of infection will discharge home follow-up PCP - Vital Signs Vital signs: Temp Pulse Resp BP Pulse Ox 98.2 F 19 132/81 H 98 09/26/19 20:48 09/26/19 21:42 09/26/19 21:42 09/26/19 21:42 - Laboratory Result Diagrams: 09/26/19 21:05 09/26/19 21:05 Laboratory results interpreted by me: 09/26/19 09/26/19 09/26/19 20:45 21:05 21:05 Hgb 16.0 H Sodium 134.7 L Chloride 94 L Glucose 477 H* POC Glucose > 550 H* AST 46 H Alkaline Phosphatase 199 H Total Protein 8.3 H Urine Glucose (UA) Urine Ketones 09/26/19 21:05 Hgb Sodium Chloride Glucose POC Glucose AST Alkaline Phosphatase Total Protein Urine Glucose (UA) >=500 H Urine Ketones 20 H Discharge - Discharge Clinical Impression: Hyperglycemia, Medication refill Hypertension Qualifiers: Hypertension type: essential hypertension Qualified Code(s): I10 - Essential (primary) hypertension Condition: Stable Disposition: HOME, SELF-CARE Instructions: Hyperglycemia ([facility]) Additional Instructions: Call your primary care provider tomorrow to obtain further refills of both your blood pressure medication and your diabetes medications. You are being given prescriptions today so that you do not run out of your medicines again as this is the reason that you likely had the elevation of your blood sugars. Return to the emergency department for any concerns or problems Prescriptions: Metformin HCl [Glucophage 500 mg Tablet] 500 mg PO DAILY #30 tablet Amlodipine Besylate [Norvasc 2.5 mg Tablet] 2.5 mg PO DAILY #30 tablet Referrals: DEJAN ALFONSO DO [NO LOCAL MD] - Follow up as needed
[2019-09-26 22:26] LABS: APPEARANCE,URINE SLIGHTLY-CLOUDY; BILIRUBIN,URINE NEGATIVE (NEGATIVE); COLOR,URINE STRAW; GLUCOSE, URINE >=500 mg/dL (NEGATIVE); KETONES,URINE 20 mg/dL (NEGATIVE); LEUKOCYTE ESTERASE,URINE NEGATIVE (NEGATIVE); NITRITE,URINE NEGATIVE (NEGATIVE); PROTEIN,URINE NEGATIVE (NEGATIVE); URINE SPECIFIC GRAVITY 1.036; UROBILINOGEN,URINE NEGATIVE mg/dL (<2.0)
[2019-09-26 22:54] VITALS: BP 125/104
--- NOTE | 2019-09-26 23:48 | EKG REPORT ---
SEVERITY:- ABNORMAL ECG - SINUS RHYTHM CONSIDER LEFT VENTRICULAR HYPERTROPHY PROBABLE INFERIOR INFARCT, OLD : Confirmed by: Alfredo Helm MD 26-Sep-2019 23:47:45
== END 2019-09-26 22:55 | disposition home or self-care (01) ==
LOC: ER 20:09
DX: E11.65 Type 2 diabetes mellitus with hyperglycemia (principal); I10 Essential (primary) hypertension; Z76.0 Encounter for issue of repeat prescription
CPT/HCPCS: 93005; 99284; 96360; 36415; 82962; 85025; 80053; 81001; 82803; 93010; J7030

== ENCOUNTER 2019-09-27 14:51 | Emergency (ER) | payer SELFPAY ==
[2019-09-27] MEDS ORDERED: OXYCODONE-ACETAMINOPHEN 5-325 MG TABLET PO ONE (16:37)
[2019-09-27] MEDS ORDERED: CEPHALEXIN 500 MG CAPSULE PO ONE (16:44)
--- NOTE | 2019-09-27 16:45 | RADIOLOGY REPORT (SQ) ---
EXAM DESCRIPTION: HAND LEFT 3 VIEWS IMAGES COMPLETED DATE/TIME: 09/27/2019 4:36 pm REASON FOR STUDY: fish hook in finger COMPARISON: None. EXAM PARAMETERS: NUMBER OF VIEWS: Three views. TECHNIQUE: AP, lateral and oblique radiographic images acquired of the left hand. LIMITATIONS: None. FINDINGS: MINERALIZATION: Normal. BONES: No acute fracture or dislocation. No worrisome bone lesions. JOINTS: No effusions. SOFT TISSUES: [place] is noted overlying the ventral radial aspect of the distal phalanx of the 3rd digit. OTHER: No other significant finding. IMPRESSION: [place] Border in the distal 3rd phalanx. No bony involvement. TECHNICAL DOCUMENTATION: JOB ID: [id number] 2010 [employer]- All Rights Reserved Reading location - IP/workstation name: [email or web address]
--- NOTE | 2019-09-27 16:50 | ER Document Report ---
ED Foreign Body - General Chief Complaint: Foreign Body Stated Complaint: FISH HOOK IN FINGER - LEFT HAND, MIDDLE FINGER Time Seen by Provider: 09/27/19 16:27 Mode of Arrival: Ambulatory Information source: Patient Notes: 54-year-old female presented to ED for fishhook in her left middle finger. She states it was a brand-new needle was not even out of the package when she picked up the back she caught the fishhook in her finger. Did remove the other trouble hooks and then forwarded the hook and removed it after anesthetizing the finger with lidocaine. Patient will be treated with some Percocet and Keflex. She said tetanus is up-to-date. Patient did tolerate the procedure well. She will be discharged with prescription for Keflex instructions for Epson salts to the finger and follow-up with her primary care in 3 days. REVIEW OF SYSTEMS: CONSTITUTIONAL : Denies fever, chills, or sweats. Denies recent illness. EENT: Denies eye, ear, throat, or mouth pain or symptoms. Denies nasal or sinus congestion. CARDIOVASCULAR: Denies chest pain. RESPIRATORY: Denies cough, cold, or chest congestion. Denies shortness of breath, difficulty breathing, or wheezing. GASTROINTESTINAL: Denies abdominal pain. Denies nausea, vomiting, or diarrhea. Denies constipation. Last BM: GENITOURINARY: Denies difficulty urinating, painful urination, burning, frequency, or blood in urine. FEMALE GENITOURINARY: Denies vaginal bleeding, abnormal or irregular periods. LMP: MUSCULOSKELETAL: Denies neck or back pain or joint pain or swelling. SKIN: Denies rash or skin lesions. New fishhook in left middle finger HEMATOLOGIC : Denies easy bruising or bleeding. LYMPHATIC: Denies swollen, enlarged glands. NEUROLOGICAL: Denies altered mental status or loss of consciousness. Denies headache. Denies weakness or paralysis or loss of use of either side. Denies problems with gait or speech. Denies sensory or motor loss. PSYCHIATRIC: Denies anxiety or stress or depression. ALL OTHER SYSTEMS REVIEWED AND NEGATIVE. VITAL SIGNS: Within normal limits. GENERAL: No acute distress, non-toxic appearance. HEAD: Normal with no signs of head trauma. EYES: PERRLA, EOMI, conjunctiva normal, no discharge. EARS: Hearing grossly intact. NOSE: Normal. THROAT: Oropharynx is normal. NECK: Normal range of motion, no tenderness, supple, no lymphadenopathy, No adenopathy, no JVD. CHEST: Clear breath sounds bilaterally. No wheezes, rales, or rhonchi. CARDIAC: Regular rate and rhythm. S1 and S2, without murmurs, gallops, or rubs. VASCULAR: No Edema. Peripheral pulses normal and equal in all extremities. ABDOMEN: Normal and soft with no tenderness, no masses or pulsatile masses. GASTROINTESTINAL: Bowel sounds normal GENITOURINARY: Normal, No tenderness LYMPATHTIC: No lymphadenopathy noted. MUSCULOSKELETAL: Good range of motion of all major joints. Extremities without clubbing, cyanosis or edema. NEUROLOGICAL: Alert and oriented x 3. No focal sensory or strength deficits. Speech normal. Follows commands appropriately. PSYCHIATRIC: Normal Affect, judgement and mood. SKIN: Normal appearance with no rashes or lesions. Buras embedded in the left middle finger distal. It has been removed TRAVEL OUTSIDE OF THE [place] IN LAST 30 DAYS: No - Related Data Allergies/Adverse Reactions: Penicillins Adverse Reaction (Verified 09/27/19 16:25) Urticaria Home Medications: metformin, amlodipine Past Medical History - General Information source: Patient - Social History Smoking Status: Never Smoker Chew tobacco use (# tins/day): No Frequency of alcohol use: None Drug Abuse: None Lives with: Family Family History: CAD, Hypertension Patient has homicidal ideation: No - Past Medical History Cardiac Medical History: Reports: Hx Hypertension Pulmonary Medical History: Reports: None EENT Medical History: Reports: None Endocrine Medical History: Reports: Hx Diabetes Mellitus Type 2 Renal/ Medical History: Reports: None Malignancy Medical History: Reports: None GI Medical History: Reports: None Musculoskeletal Medical History: Reports Hx Musculoskeletal Trauma Skin Medical History: Reports None Psychiatric Medical History: Reports: None Traumatic Medical History: Reports: Hx Fractures Infectious Medical History: Reports: None Past Surgical History: Reports: Hx Dilation and Curettage - Immunizations Immunizations up to date: Yes Hx Diphtheria, Pertussis, Tetanus Vaccination: Yes Physical Exam - Vital signs Vitals: Temp Pulse Resp BP Pulse Ox 98.6 F 82 16 151/101 H 100 09/27/19 14:57 09/27/19 14:57 09/27/19 14:57 09/27/19 14:57 09/27/19 14:57 Course - Re-evaluation Re-evalutation: 09/27/19 16:55 Buras was removed from the left middle finger. Her finger was anesthetized with 4 cc of 1% lidocaine. She finger was cleaned with surgical scrub. PPE was used. Wound was cleaned well with surgical scrub rinse with saline. The other hooks on the trouble hook were removed with wire cutters then the hook was advanced and the angelito was removed then the hook was removed. Site was irrigated with 10 cc of normal saline wound was dressed with bacitracin and Band-Aid patient was given instructions on soaking with Epson salt applying bacitracin and following up with her primary care doctor in 3 days. She was given Percocet and Keflex in the emergency room and discharged home with a prescription for Keflex. - Vital Signs Vital signs: Temp Pulse Resp BP Pulse Ox 98.6 F 82 16 151/101 H 100 09/27/19 14:57 09/27/19 14:57 09/27/19 14:57 09/27/19 14:57 09/27/19 14:57 Discharge - Discharge Clinical Impression: Buras removed from left middle finger Condition: Stable Disposition: HOME, SELF-CARE Additional Instructions: New aftabhook was removed from your left middle finger. Cephalexin The antibiotic you've been prescribed is a member of the cephalosporin class. This type of antibiotic covers a wide variety of infections, including those of the skin, lungs, and urinary tract. It's useful for staph infections. This antibiotic is slightly similar to the penicillin family. In rare cases, a person who is allergic to penicillin will also be allergic to this medication. If you have had a severe allergic reaction to penicillin, and have not taken this antibiotic since that time, notify your doctor. Antibiotics which cover many germs ("broad spectrum" antibiotics) are more likely to cause diarrhea or "yeast" infections. Women prone to vaginal yeast problems may suffer an attack after taking this antibiotic. In infants, oral thrush (white spots "stuck" on the cheek) or yeast diaper rash may result. See your doctor if these problems occur. Call at once if you develop itching, hives, shortness of breath, or lightheadedness. Epsom Salt Soaks Soak the wound area in a container of warm epsom salt water. If you can't get the wound area into a bucket or hart, use a folded towel soaked in the epsom salt solution and apply to the area. Use clean hot tap water (about the temperature of a very warm bath), mixing in about one (1) teaspoon for every pint of water. Two gallon --> 16 teaspoons Epsom Salts One gallon --> 8 teaspoons Epsom Salts Two quarts --> 4 teaspoons Epsom Salts One quart --> 2 teaspoons Epsom Salts Soak the wound for about 20 minutes while gently moving it around in the water. Repeat this four (4) times a day. SOAP CLEANSING: Gently wash the wound daily using a mild soap (like Ivory, Phisoderm, Neutrogena). Use warm water, rubbing gently until all debris, ooze, and crusting have been washed from the wound. Allow to dry briefly (about 10 minutes) after cleaning. Repeat this cleansing at least three times a day for the first two days and then once or twice a day. ANTIBIOTIC OINTMENT PROTECTION: Your wounds are such that dressing them is not practical or optional. After cleansing, you should apply a thin coating of antibiotic ointment (Bacitracin, not Neosporin) to the wounds at least three times daily. This lessens infection risk, and may decrease the amount of scarring. Use a q-tip or dull butter knife, not your finger, to apply this ointment. Any debris or ooze which builds up in the ointment should be gently rubbed off with a sterile gauze pad. Harder crusting may need to be gently scrubbed off with a clean wash cloth with soap and warm water, perhaps applying a warm, wet wash cloth to the wound for ten minutes first. Development of redness, severe itching, or blistering may mean allergy to the ointment. See the doctor. Ibuprofen Ibuprofen is an excellent, safe drug for pain control. In addition, it has potent antiinflammatory effects which are beneficial, especially in the treatment of injuries, arthritis, or tendonitis. It's best to take ibuprofen w ith food. Persons with ulcer disease or allergy to aspirin should notify their physician of this before taking ibuprofen. Take the medication exactly as prescribed. Don't take additional doses unless instructed to do so by your doctor. If you develop wheezing, shortness of breath, hives, faintness, stomach pain, vomiting, or dark black stools, return for re-evaluation at once. ORAL NARCOTIC MEDICATION: You have been given a Percocet for pain control. This medication is a narcotic. It's best taken with food, as nausea can result if taken on an empty stomach. Don't operate machinery or drive within six hours of taking this medication. Do not combine this medicine with alcohol, or with any medication which can cause sedation (such as cold tablets or sleeping pills) unless you get permission from the physician. Narcotics tend to cause constipation. If possible, drink plenty of fluids and eat a diet high in fiber and fruits. FOLLOW-UP CARE: Please return in __3___ days for an infection check and dressing change. If you have been referred to another physician for follow-up care, call that physicians office for an appointment as you were instructed. If you experience a significant change in your laceration, or if you are concerned there may be an infection (swelling, redness, drainage, increasing tenderness, red streaks, tender lumps in the armpit or groin above the laceration, or fever), return to the Emergency Department immediately re-evaluation. Prescriptions: Cephalexin Monohydrate [Keflex 500 mg Capsule] 500 mg PO Q6H 5 Days #20 capsule Forms: Elevated Blood Pressure
[2019-09-27 16:55] VITALS: BP 148/92
== END 2019-09-27 16:52 | disposition home or self-care (01) ==
LOC: ER 14:51
DX: S61.243A Puncture wound with foreign body of left middle finger without damage to nail, initial encounter (principal); W45.8XXA Other foreign body or object entering through skin, initial encounter; E11.9 Type 2 diabetes mellitus without complications; I10 Essential (primary) hypertension; Z79.84 Long term (current) use of oral hypoglycemic drugs; Z79.899 Other long term (current) drug therapy
CPT/HCPCS: 99284